=== PATIENT | male | born 1965 ===

== ENCOUNTER 2025-01-26 07:28 | Outpatient (CLI) | payer OTHER ==
[2025-01-26 08:05] LABS: URINE APPEARANCE Clear; URINE BILIRRUBIN Negative (NEGATIVE); URINE BLOOD Small; URINE COLOR Yellow; URINE GLUCOSE Negative (NEGATIVE); URINE KETONE Negative (NEGATIVE); URINE LEUKOCYTE Trace; URINE NITRATE Negative; URINE PROTEIN Trace (NEGATIVE); URINE UROBILINOGEN 1.0 E.U./dl
[2025-01-26 08:06] LABS: BASO % 0.7 % (0.1-1.2); EOS # 0.23 (0.04-0.54); EOS % 3.1 % (0.7-7.0); LYMPH # 1.82 (1.18-3.74); LYMPH % 24.2 % (19.3-53.1); MEAN PLATELET VOLUME 9.30 fl (9.4-12.4); MONO # 0.59 (0.24-0.82); MONO % 7.8 % (4.7-12.5); NEUT # 4.80 (1.56-6.13); NEUT % 63.7 % (34.0-71.1); RED CELL DISTRIBUTION WIDTH 13.7 % (11.6-14.4); URINE BACTERIA 5.9 uL (0.0-1933); URINE EPITHELIAL CELLS 1.9 uL (0.0-38.8); URINE RBC 39.4 uL (0.0-20.8); URINE WBC 9.9 uL (0.0-23.2)
[2025-01-26 08:12] LABS: URINE CAST 0.14 uL (0.0-1.40)
[2025-01-26 08:47] LABS: INR 1.0
[2025-01-26 08:55] LABS: ALT/SGPT 27.0 U/L (12-78); AST/SGOT 17.0 U/L (15-37); BILIRUBIN TOTAL 0.57 mg/dL (0.3-1.2); BUN CREA RATIO 24.0 (7.0-25.0); CREATININE SERUM 0.83 mg/dL (0.70-1.30); GFR 94.83; GLOBULINA 2.9 G/DL (2.4-3.5); GLUCOSE FASTING 114.0 mg/dL (65-100); OSMOLALITY SERUM 287.0 MOSM/KG (275-295)
== END 2025-01-26 07:30 | disposition home or self-care (01) ==
LOC: LAB 07:28
PROVIDERS: ATTEND Surgery
DX: K60.1 Chronic anal fissure (principal); R19.5 Other fecal abnormalities; K57.30 Diverticulosis of large intestine without perforation or abscess without bleeding; D12.5 Benign neoplasm of sigmoid colon; D12.3 Benign neoplasm of transverse colon